=== PATIENT | female | born 1955 | race Caucasian/White ===

== ENCOUNTER → 2018-04-07 | Outpatient (CLI) | payer BC ==
--- NOTE | 2018-04-07 15:40 | XR ---
EXAMINATION TYPE: XR chest 2V DATE OF EXAM: 04/07/2018 COMPARISON: NONE TECHNIQUE: PA and lateral views submitted. HISTORY: Cough FINDINGS: Curvature the spine noted with degenerative changes. Hyperinflation seen. There is left lower lobe ar ea of consolidation. Underlying COPD not excluded. No pneumothorax or interstitial edema. Report call ed to referring clinician. IMPRESSION: 1. Left lower lobe pneumonia. A [place] level critical message alert has been initiated for Dorothea Brock via the [employer] Critical Results System on 04/07/2018 3:38 PM. This message alert has been sent to Dorothea Brock via the preferences provided by the clinician for the receipt of Radiology Critical Finding s. Message ID [id number].
== END ==
LOC: RADXRMAIN 15:04
PROVIDERS: ATTEND Physician Assistant
DX: J18.1 Lobar pneumonia, unspecified organism (principal)
CPT/HCPCS: 71046